=== PATIENT | female | born 1960 | race Caucasian/White ===

== ENCOUNTER 2024-02-02 11:25 | Outpatient (CLI) | payer BC, SELFPAY ==
--- NOTE | ~2024-02-02 | MMUS_ITS ---
EXAMINATION: MM diagnostic ro BI w artem, US breast BI complete HISTORY: Mastodynia TECHNIQUE: Additional 3-D tomosynthesis images of the breasts were performed and synthetic 2-D images were generated. CAD analysis was submitted and interpreted. High resolution bilateral complete breas t ultrasound was performed. COMPARISON: Comparison to multiple prior studies sequentially, with oldest reviewed study dated 03/24. BREAST PARENCHYMAL COMPOSITION: Dense: The breasts are heterogeneously dense, which may obscure small masses FINDINGS: MAMMOGRAPHIC FINDINGS: The breasts parenchyma is stable. No new masses, areas of architectural distortion, developing densit ies are identified. There are diffuse punctate monomorphic bilateral breast calcifications which are benign. ULTRASOUND: Complete US of all 4 quadrants of the breast/s and retroareolar region was reviewed. There are small bilateral breast cysts. Mildly prominent ducts bilaterally. No suspicious masses in e ither breast to suggest malignancy. IMPRESSION: 1. No evidence for malignancy in either breast. Benign findings. 2. Routine yearly screening mammogram and regular clinical breast examination are recommended. BI-RADS Category 2: Benign finding(s). Reviewed, dictated and finalized at location B. IMPRESSION: 1. No evidence for malignancy in either breast. Benign findings. 2. Routine yearly screening mammogram and regular clinical breast examination a re recommended. BI-RADS Category 2: Benign finding(s).
== END 2024-02-02 11:26 | disposition home or self-care (01) ==
PROVIDERS: PCP Family Medicine
DX: N64.4 Mastodynia (principal)
CPT/HCPCS: 76641; 77062; 77066; G0279